=== PATIENT | male | born 1960 | race Caucasian/White ===

== ENCOUNTER 2018-07-17 10:28 | Outpatient (CLI) | payer BC ==
--- NOTE | 2018-07-17 12:22 | RAD ---
CHEST 2 VIEWS: Date: 07/17/18 HISTORY: Cough. COMPARISON: 04/12/16. FINDINGS: Old granuloma calcification on the left. Heart size is within normal limits. The lungs are clear. IMPRESSION: No acute intrathoracic disease. Old granulomatous disease. Stable from prior study. POS: C
== END 2018-07-17 10:29 | disposition home or self-care (01) ==
LOC: BICRAD 10:28
PROVIDERS: ATTEND Family Medicine
DX: R05 Cough (principal)
CPT/HCPCS: 36415; 71046; 80053; 80061; 83036; 84443; 85025; G0103

== ENCOUNTER 2021-07-25 09:15 | Outpatient (CLI) | payer BC | END 2021-07-25 09:16 | disposition home or self-care (01) | LOC: RAD 09:15 | PROVIDERS: ATTEND Internal Medicine Critical Care Medicine | DX: R06.00 Dyspnea, unspecified (principal) | CPT/HCPCS: 71046 ==

== ENCOUNTER 2022-11-12 12:05 | Outpatient (CLI) | payer BC | END 2022-11-12 12:06 | disposition home or self-care (01) | LOC: RAD 12:05 | PROVIDERS: ATTEND Family Medicine | DX: R05.8 Other specified cough (principal) | CPT/HCPCS: 71046 ==

== ENCOUNTER 2023-08-29 13:45 | Outpatient (CLI) | payer BC | END 2023-08-29 13:46 | disposition home or self-care (01) | LOC: ULT 13:45 | PROVIDERS: ATTEND Family Medicine | DX: E07.9 Disorder of thyroid, unspecified (principal); E04.1 Nontoxic single thyroid nodule | CPT/HCPCS: 76536 ==